=== PATIENT | female | born 1985 ===

== ENCOUNTER 2016-12-01 20:34 | Emergency (ER) | payer MEDICAID, OTHER ==
[2016-12-01 20:34] VITALS: BMI 47.2
[2016-12-01 20:46] VITALS: TEMP 99.5
--- NOTE | 2016-12-01 21:22 | ED PDOC ---
Arrival/HPI <Silvino Springer - Last Filed: 12/02/16 01:03> - General Historian: Patient <Tori Rollins - Last Filed: 12/02/16 04:11> - General Chief Complaint: Abdominal Pain Time Seen by Provider: 12/01/16 20:48 - History of Present Illness Narrative History of Present Illness (Text): 12/01/16 21:24 Patient is a 31 y/o with PMH of asthma and NIDDM2 presenting with lower quadrant abdominal pain. Patient states the abdominal pain started suddenly this morning. Patient states the abdominal pain is not related to food intake. Its sharp and radiates to the back. Patient admits to history of utis and h/o nephrostomy tube. Patient also reports she has h/o multiple yeast infections but thinks this type of pain is different. Patient denies dysurea, hematuria, increased frequency or hesitancy. patient denies n/v/d. Denies cp or sob. 12/01/16 21:26 (Tori Rollins) Past Medical History - Provider Review Nursing Documentation Reviewed: Yes <Silvino Springer - Last Filed: 12/02/16 01:03> - Provider Review Nursing Documentation Reviewed: Yes - Travel History Have you recently traveled outside [place] w/in the past 3 mons?: No - Infectious Disease Hx of Infectious Diseases: None - Tetanus Immunization Tetanus Immunization: Unknown - Past Medical History Past Medical History: No Previous - Cardiac Hx Hypertension: Yes - Pulmonary Hx Asthma: Yes Hx Bronchitis: Yes - Neurological Hx Neurological Disorder: No - HEENT Hx HEENT Disorder: No - Renal Hx Renal Disorder: No - Endocrine/Metabolic Hx Endocrine Disorders: Yes Hx Diabetes Mellitus Type 2: Yes - Hematological/Oncological Hx Blood Disorders: No - Integumentary Hx Dermatological Disorder: No - Musculoskeletal/Rheumatological Hx Musculoskeletal Disorders: Yes - Gastrointestinal Hx Gastrointestinal Disorders: No - Genitourinary/Gynecological Hx Genitourinary Disorders: No - Psychiatric Hx Anxiety: Yes Hx Substance Use: No (DENIED) - Past Surgical History Past Surgical History: Non-Contributing - Surgical History Hx Tonsillectomy: Yes - Anesthesia Hx Anesthesia: Yes - Suicidal Assessment Feels Threatened In Home Enviroment: No <Tori Rollins - Last Filed: 12/02/16 04:11> Family/Social History - Physician Review Nursing Documentation Reviewed: Yes Family/Social History: No Known Family HX <Silvino Springer - Last Filed: 12/02/16 01:03> - Physician Review Nursing Documentation Reviewed: Yes Family/Social History: Diabetes, Hypertension Smoking Status: Heavy Smoker > 10 Cigarettes Daily Hx Alcohol Use: No Hx Substance Use: No (DENIED) Hx Substance Use Treatment: No <Tori Rollins - Last Filed: 12/02/16 04:11> Allergies/Home Meds <Silvino Springer - Last Filed: 12/02/16 01:03> <Tori Rollins - Last Filed: 12/02/16 04:11> Allergies/Adverse Reactions: Allergies epinephrine Allergy (Verified 12/01/16 20:42) ANAPHYLAXIS shellfish derived Allergy (Verified 12/01/16 20:42) ANAPHYLAXIS Home Medications: Home Meds Medication Instructions Recorded Confirmed ALPRAZolam [Xanax] 1 mg PO TID 11/07/15 12/01/16 Insulin Aspart, Recombinant 0 unit DAILY 02/05/16 12/01/16 [Novolog] Review of Systems - Review of Systems Constitutional: Normal Eyes: Normal ENT: Normal Respiratory: Normal Cardiovascular: Normal Gastrointestinal: Abdominal Pain. absent: Constipation, Diarrhea, Nausea, Vomiting, Appetite Changes Genitourinary Female: Normal Musculoskeletal: Normal Skin: Normal Neurological: Normal Endocrine: Normal Hemo/Lymphatic: Normal Psychiatric: Normal <Tori Rollins - Last Filed: 12/02/16 04:11> Physical Exam Temperature: Afebrile Blood Pressure: Normal Pulse: Tachycardic Respiratory Rate: Normal Appearance: Positive for: Well-Appearing, Non-Toxic, Comfortable Mental Status: Positive for: Alert and Oriented X 3 - Systems Exam Head: Present: Atraumatic, Normocephalic Pupils: Present: PERRL Extroacular Muscles: Present: EOMI Conjunctiva: Present: Normal Mouth: Present: Moist Mucous Membranes Neck: Present: Normal Range of Motion Respiratory/Chest: Present: Clear to Auscultation, Good Air Exchange. No: Respiratory Distress, Accessory Muscle Use Cardiovascular: Present: Regular Rate and Rhythm, Normal S1, S2. No: Murmurs Abdomen: Present: Tenderness (difuse), Normal Bowel Sounds, Guarding, Other (+ CVA tenderness). No: Distention (obese abdmona), Rebound Upper Extremity: Present: Normal Inspection. No: Edema Lower Extremity: Present: Normal Inspection. No: Edema Skin: Present: Warm, Dry, Rashes, Abrasion Psychiatric: Present: Alert, Oriented x 3, Normal Insight, Agitated <Tori Rollins - Last Filed: 12/02/16 04:11> Vital Signs Temp Pulse Resp BP Pulse Ox 12/02/16 01:11 16 99 12/02/16 00:13 80 16 101/58 L 99 12/01/16 21:18 99.5 F 120 H 21 98 12/01/16 20:43 99.5 F 122 H 18 140/76 95 Medical Decision Making - Lab Interpretations I have reviewed the lab results: Yes <Silvino Springer - Last Filed: 12/02/16 01:03> Re-evaluation Time: 22:40 Reassessment Condition: Re-examined, Improving,but remains with symptoms - Lab Interpretations I have reviewed the lab results: Yes (Random glucose 413) <Tori Rollins - Last Filed: 12/02/16 04:11> ED Course and Treatment: Pt seen and evaluated with medical office worker. Pt, whose past medical history inclydes asthma, UTIs, yeast infection, and diabetes, presented for lower abdominal pain radiating to back since this morning. Aware and agree with HPI, clinical findings, plan, and management. Plan: -- Labs, lipase -- Urinalysis -- IV fluids -- Toradol -- Reassess and disposition (Silvino Springer) - Lab Interpretations Lab Results: 12/01/16 21:25 12/01/16 21:25 Lab Results 12/01/16 21:25: Urine Color Yellow, Urine Appearance Clear, Urine pH 6.5, Ur Specific [place] 1.010, Urine Protein Negative, Urine Glucose (UA) >=1000, Urine Ketones Negative, Urine Blood Negative, Urine Nitrate Negative, Urine Bilirubin Negative, Urine Urobilinogen 0.2, Ur Leukocyte Esterase Negative 12/01/16 21:25: Sodium 134, Potassium 3.8, Chloride 99, Carbon Dioxide 27, Anion Gap 12, BUN 9, Creatinine 0.6, Est GFR ( Amer) > 60, Est GFR (Non- Af Amer) > 60, Random Glucose 413 H*, Calcium 8.7, Total Bilirubin 0.3, AST 27, ALT 54, Alkaline Phosphatase 150 H, Total Protein 6.4, Albumin 3.2, Globulin 3.1 , Albumin/Globulin Ratio 1.0 L, Lipase 48 12/01/16 21:25: WBC 8.8, RBC 5.17, Hgb 15.3, Hct 44.6, MCV 86.3, MCH 29.6, MCHC 34.3, RDW 13.2, Plt Count 261, MPV 11.0, Gran % 61.3, Lymph % (Auto) 28.6, [place] % (Auto) 7.3 H, Eos % (Auto) 2.6, Baso % (Auto) 0.2, Gran # 5.37, Lymph # 2.5, [place] # 0.6, Eos # 0.2, Baso # 0.02 - RAD Interpretation Radiology Orders: 12/01/16 21:44 TRANSVAGINAL [US] Stat 12/01/16 22:36 ABD & PELVIS W/O PO OR IV CONT [CT] Stat - Medication Orders Current Medication Orders: Discontinued Medications Sodium Chloride (Sodium Chloride 0.9%) 1,000 mls @ 80 mls/hr IV .[id number] FAYE Last Admin: 12/01/16 22:17 Dose: 80 mls/hr Insulin Human Regular (Humulin R) 8 units SC STAT STA Stop: 12/01/16 22:18 Last Admin: 12/02/16 00:01 Dose: 8 units Ketorolac Tromethamine (Toradol) 30 mg IVP STAT STA Stop: 12/01/16 21:21 Last Admin: 12/01/16 21:39 Dose: 30 mg Ketorolac Tromethamine (Toradol) Confirm Administered Dose 30 mg .ROUTE .STK- MED ONE Stop: 12/01/16 21:25 Last Admin: 12/01/16 21:40 Dose: Morphine Sulfate (Morphine) 2 mg IVP STAT STA Stop: 12/01/16 21:58 Last Admin: 12/01/16 22:18 Dose: 2 mg Disposition/Present on Arrival <Silvino Springer - Last Filed: 12/02/16 01:03> - Present on Arrival Any Indicators Present on Arrival: No History of DVT/PE: No History of Uncontrolled Diabetes: No Urinary Catheter: No History of Decub. Ulcer: No History Surgical Site Infection Following: None - Disposition Have Diagnosis and Disposition been Completed?: Yes Disposition Time: 01:00 <Tori Rollins - Last Filed: 12/02/16 04:11> - Disposition Diagnosis: Abdominal pain, Uncontrolled diabetes mellitus Disposition: HOME/ ROUTINE Condition: IMPROVED Discharge Instructions (ExitCare): Abdominal Pain (ED) Additional Instructions: Please take tylenol as needed for pain Take your insulin as prescribed. Go to the nearest emergency room if you experience chest, sob, fever or chills. Referrals: [facility] [place]] - Follow up with primary
[2016-12-01 21:54] LABS: ADD MANUAL DIFF? NO
[2016-12-01 21:57] LABS: BASO # 0.02 K/mm3 (0.0-2.0); BASO % 0.2 % (0.0-3.0); EOS # 0.2 (0.0-0.7); EOS % 2.6 % (1.5-5.0); GRAN # 5.37 (1.4-6.5); GRAN % 61.3 % (50.0-68.0); HEMATOCRIT 44.6 % (36.0-48.0); LYMPH # 2.5 (1.2-3.4); LYMPH % 28.6 % (22.0-35.0); MEAN CELL VOLUME 86.3 fL (80.0-105.0); MEAN CORPUSCULAR HEMOGLOBIN 29.6 pg (25.0-35.0); MEAN CORPUSCULAR HGB CONC 34.3 g/dl (31.0-37.0); MONO # 0.6 (0.1-0.6); MONO % 7.3 % (1.0-6.0); PH,URINE 6.5 (4.7-8.0); PLATELET COUNT 261 10^3/uL (120.0-450.0); RED CELL DISTRIBUTION WIDTH 13.2 % (11.5-14.5); URINE BILIRUBIN NEGATIVE (NEGATIVE); URINE BLOOD NEGATIVE (NEGATIVE); URINE GLUCOSE (UA) >=1000 mg/dL (NEGATIVE); URINE KETONE NEGATIVE (NEGATIVE); URINE LEUKOCYTE ESTERASE NEGATIVE Leu/uL (NEGATIVE); URINE PROTEIN NEGATIVE mg/dL (<30 mg/dL); URINE UROBILINOGEN 0.2 E.U./dL (<1 E.U./dL); WHITE BLOOD COUNT 8.8 10^3/ul (4.5-11.0)
[2016-12-01] MEDS ORDERED: Morphine 2 mg/ml ISec IVP STA (21:57)
[2016-12-01] MEDS ORDERED: Sodium Chloride 0.9% 1,000 ML IV SCH (22:00)
[2016-12-01 22:08] LABS: URINE APPEARANCE CLEAR (CLEAR); URINE COLOR YELLOW (YELLOW)
[2016-12-01 22:09] LABS: ALKALINE PHOSPHATASE 150 U/L (38-133); ALT/SGPT 54 U/L (7-56); AST/SGOT 27 U/L (15-39); BILIRUBIN,TOTAL 0.3 mg/dL (0.2-1.3); BLOOD UREA NITROGEN 9 mg/dL (7-21); CALCIUM 8.7 mg/dL (8.4-10.5); CARBON DIOXIDE 27 mmol/L (21-33); CHLORIDE 99 mmol/L (98-107); GFR AFRICAN-AMERICAN > 60; LIPASE 48 U/L (23-300); POTASSIUM 3.8 mmol/L (3.6-5.0); SODIUM 134 mmol/L (132-148); TOTAL PROTEIN 6.4 g/dL (5.8-8.3)
[2016-12-01 22:15] LABS: GLUCOSE,RANDOM 413 mg/dL (70-110)
[2016-12-01] MEDS ORDERED: Insulin Regular 1 UNITS/0.01 ML ML SC STA (22:17)
--- NOTE | 2016-12-01 23:48 | CT ---
EXAM: CT Abdomen and Pelvis Without Intravenous Contrast CLINICAL HISTORY: 31 years old, female; Pain; Abdominal pain; Patient HX: Abd pain TECHNIQUE: Axial computed tomography images of the abdomen and pelvis without intravenous contrast. This CT exam was performed using one or more of the following dose reduction techniques: automated exposure control, adjustment of the mA and/or kV according to patient size, and/or use of iterative reconstruction technique. Coronal and sagittal reformatted images were created and reviewed. COMPARISON: CT - ABD PELVIS W/O PO OR IV CONT 10/05/2015 1:25:30 AM FINDINGS: Limitations: Lack of intravenous contrast. Lower thorax: Minimal atelectasis/scarring. Few subpleural pulmonary nodules and/or scarring, up to 0.2 cm, stable. ABDOMEN: Liver: Fatty infiltration. Gallbladder and bile ducts: No calcified stones. No ductal dilation. Pancreas: Unremarkable. No ductal dilation. Spleen: No splenomegaly. Adrenals: No mass. Kidneys and ureters: No renal calculi. No hydronephrosis. Stomach and bowel: No definite mural thickening. No obstruction. Appendix: Normal caliber. No inflammation. PELVIS: Bladder: Unremarkable. No stones. Reproductive: Unremarkable as visualized. ABDOMEN and PELVIS: Intraperitoneal space: No significant fluid collection. No free air. Bones/joints: Mild compression deformity T11, T12 vertebral bodies, chronic. Soft tissues: Unremarkable. Vasculature: Unremarkable. No aneurysm. Lymph nodes: No pathologically enlarged lymph nodes. IMPRESSION: 1. No definite acute intraabdominal abnormality. 2. Incidental/non-acute findings are described above.
[2016-12-02 00:14] VITALS: BP 101/58; PULSE 80; RESP 16; O2SAT 99
--- NOTE | 2016-12-02 00:19 | US ---
EXAM: US Pelvis Complete, Transabdominal CLINICAL HISTORY: 31 years old, female; Pain; Pelvic pain; Additional info: Lower quadrants abdominal pain. TECHNIQUE: Real-time transabdominal pelvic ultrasound (complete) with image documentation. COMPARISON: CT - ABD PELVIS W/O PO OR IV CONT 12/01/2016 FINDINGS: Limitations: Body habitus. Uterus/cervix: Uterus measures 7.8 x 4.7 x 5.7 cm in size. No myometrial mass. Endometrium: 1.0 cm in thickness. Right ovary: 2.5 x 1.6 x 3.2 cm in size. No mass. Normal flow. Left ovary: 1.6 x 1.6 x 1.6 cm in size. No mass. Normal flow. Free fluid: No significant free fluid. Bladder: Unremarkable as visualized. IMPRESSION: 1.No acute findings. 2.Non-acute findings are described above. EXAM: US Pelvis, Transvaginal CLINICAL HISTORY: 31 years old, female; Pain; Pelvic pain; Additional info: Lower quadrants abdominal pain. TECHNIQUE: Real-time transvaginal pelvic ultrasound (complete) with image documentation. Transvaginal imaging was used for better evaluation of the endometrium and adnexa. COMPARISON: CT - ABD PELVIS W/O PO OR IV CONT 12/01/2016 FINDINGS: Limitations: Body habitus. Uterus/cervix: Uterus measures 7.8 x 4.7 x 5.7 cm in size. No myometrial mass. Endometrium: 1.0 cm in thickness. Right ovary: 2.5 x 1.6 x 3.2 cm in size. No mass. Normal flow. Left ovary: 1.6 x 1.6 x 1.6 cm in size. No mass. Normal flow. Free fluid: No significant free fluid. Bladder: Empty bladder which cannot be evaluated with this probe.
== END 2016-12-02 01:13 | disposition home or self-care (01) ==
LOC: ED 20:34
DX: E11.9 Type 2 diabetes mellitus without complications (principal); R10.9 Unspecified abdominal pain
CPT/HCPCS: 74176; 76830; 80053; 81003; 83690; 85025; 96374; 96375; 99283; J1885; J2270; J7040

== ENCOUNTER 2018-09-04 21:35 | Observation (INO) | payer MEDICAID, OTHER ==
[2018-09-04] MEDS ORDERED: Sodium Chloride 0.9% 1,000 ML IV STA (22:27)
[2018-09-04] MEDS ORDERED: Morphine 4 mg/ml ISec IVP STA (22:27)
[2018-09-04] MEDS ORDERED: Morphine 4 mg/ml ISec ONE (22:38)
--- NOTE | 2018-09-04 23:17 | ED PDOC ---
Arrival/HPI - General Chief Complaint: Abdominal Pain Time Seen by Provider: 09/04/18 21:41 Historian: Patient - History of Present Illness Narrative History of Present Illness (Text): 09/04/18 23:31 A 33 year old female presents to the emergency department complaining of abdominal pain, vomiting, and diarrhea for 4 days. Patient reports she was seen at [facility] yesterday and had labs and CT performed, showing possible m esenteric adenitis, hiatal hernia, constipation, and gastritis. Patient was admitted for further evaluation and had a EGD performed. Later on, patient signed out against medical advice because "they weren't giving me my anxiety medications correctly", and states "I shouldn't have signed out because I'm still in pain". She presented to this ED for further evaluation. Patient denies any fever, or any other complaints at this time. PMD: Dr. Mejia Past Medical History - Provider Review Nursing Documentation Reviewed: Yes - Infectious Disease Hx of Infectious Diseases: None - Tetanus Immunization Tetanus Immunization: Unknown - Past Medical History Past Medical History: No Previous - Cardiac Hx Hypertension: Yes - Pulmonary Hx Asthma: Yes Hx Bronchitis: Yes - Neurological Hx Neurological Disorder: No - HEENT Hx HEENT Disorder: No - Renal Hx Renal Disorder: No - Endocrine/Metabolic Hx Endocrine Disorders: Yes Hx Diabetes Mellitus Type 2: Yes - Hematological/Oncological Hx Blood Disorders: No - Integumentary Hx Dermatological Disorder: No - Musculoskeletal/Rheumatological Hx Falls: No - Gastrointestinal Hx Gastrointestinal Disorders: No - Genitourinary/Gynecological Hx Genitourinary Disorders: No - Psychiatric Hx Substance Use: No - Past Surgical History Past Surgical History: Non-Contributing - Surgical History Hx Tonsillectomy: Yes - Anesthesia Hx Anesthesia: Yes Hx Anesthesia Reactions: No - Suicidal Assessment Feels Threatened In Home Enviroment: No Family/Social History - Physician Review Nursing Documentation Reviewed: Yes Family/Social History: No Known Family HX Smoking Status: Heavy Smoker > 10 Cigarettes Daily Hx Alcohol Use: No Hx Substance Use: No Hx Substance Use Treatment: No Allergies/Home Meds Allergies/Adverse Reactions: Allergies epinephrine Allergy (Verified 09/04/18 21:42) ANAPHYLAXIS shellfish derived Allergy (Verified 09/04/18 21:42) ANAPHYLAXIS Home Medications: Home Meds Medication Instructions Recorded Confirmed Albuterol 0.083% [Albuterol 3 ml IH Q4 PRN 09/04/18 09/04/18 Sulfate 3 Ml] Albuterol HFA [Ventolin HFA 90 1 puff IH Q6 PRN 09/04/18 09/04/18 mcg/actuation (8 g)] ALPRAZolam [Xanax] 0.25 mg PO BID 09/05/18 09/05/18 Review of Systems - Physician Review All systems were reviewed & negative as marked: Yes - Review of Systems Constitutional: absent: Fevers Gastrointestinal: Abdominal Pain, Diarrhea, Nausea, Vomiting Physical Exam Vital Signs Reviewed: Yes Vital Signs Temp Pulse Resp BP Pulse Ox 09/04/18 21:42 98.1 F 68 18 129/71 100 Temperature: Afebrile Blood Pressure: Normal Pulse: Regular Respiratory Rate: Normal Appearance: Positive for: Other (anxious, tearful) Pain Distress: Moderate Mental Status: Positive for: Alert and Oriented X 3 - Systems Exam Head: Present: Atraumatic, Normocephalic Pupils: Present: PERRL Extroacular Muscles: Present: EOMI Conjunctiva: Present: Normal Neck: Present: Normal Range of Motion Respiratory/Chest: Present: Clear to Auscultation, Good Air Exchange. No: Respiratory Distress, Accessory Muscle Use Cardiovascular: Present: Regular Rate and Rhythm, Normal S1, S2. No: Murmurs Abdomen: Present: Tenderness (periumbilical and lower region). No: Distention, Peritoneal Signs, Rebound, Guarding Back: Present: Normal Inspection Upper Extremity: Present: Normal Inspection. No: Cyanosis, Edema Lower Extremity: Present: Normal Inspection. No: Edema Neurological: Present: GCS=15, CN II-XII Intact, Speech Normal Skin: Present: Warm, Dry, Normal Color. No: Rashes Psychiatric: Present: Alert, Oriented x 3, Normal Insight, Normal Concentration Medical Decision Making ED Course and Treatment: 09/04/18 23:31 Impression: 33 year old female with abdominal pain, vomiting, and diarrhea. Plan: -- Pepcid -- Morphine -- Zofran -- IV Fluids -- Reassess and disposition Progress Notes: Chart from previous [facility] admission reviewed. Patient started on IV hydration. Pepcid, morphine, and zofran ivp given for gastritis, pain, and nausea. Patient continues to complain of severe pain. As she was previously undergoing GI evaluation at [facility], decision made to re-admit. Case discussed with Dr. Figueroa, accepts patient for admission to hospitalist service. Admitted under Dr. Wilkerson. 09/06/18 06:26 - Medication Orders Current Medication Orders: Sodium Chloride (Sodium Chloride 0.9%) 1,000 mls @ 999 mls/hr IV .[id number] STA Stop: 09/04/18 23:27 Last Admin: 09/04/18 22:40 Dose: 999 mls/hr eMAR Start Stop Document 09/04/18 22:40 JOL (Rec[facility]04[facility]18 [id number] Intravenous Solution Start Date 09/04/18 Start Time 22:40 End Date 09/04/18 End time 23:41 Total Infusion Time 61 Discontinued Medications Famotidine (Pepcid) 20 mg IVP STAT STA Stop: 09/04/18 22:28 Last Admin: 09/04/18 22:40 Dose: 20 mg IVP Administration Document 09/04/18 22:40 JOL (Rec: 09/04/18 22:56 [id number] Charges for Administration # of IVP Administrations 1 Morphine Sulfate (Morphine) 4 mg IVP STAT STA Stop: 09/04/18 22:28 Last Admin: 09/04/18 22:40 Dose: 4 mg MAR Pain Assessment Document 09/04/18 22:40 JOL (Rec: 09/04/18 22:55 JOL [id number]) Pain Reassessment Is this a pain reassessment? No Sleep Is patient sleeping during reassessment? No Presence of Pain Presence of Pain Yes Pain Scale Used Protocol: PSCALES Pain Scale Used Numeric Location Pain Location Body Site Abdomen Description Intensity of Pain at present 7 Pain Behavior Moaning Crying Restlessness Facial Grimacing IVP Administration Document 09/04/18 22:40 JOL (Rec: 09/04/18 22:55 JOL [id number]) Charges for Administration # of IVP Administrations 1 Ondansetron HCl (Zofran Inj) 4 mg IVP STAT STA Stop: 09/04/18 22:28 Last Admin: 09/04/18 22:40 Dose: 4 mg IVP Administration Document 09/04/18 22:40 JOL (Rec: 09/04/18 22:56 JOL [id number]) Charges for Administration # of IVP Administrations 1 - Scribe Statement The provider has reviewed the documentation as recorded by the Andrew Humphrey Provider Andrew Attestation: All medical record entries made by the Sergeibseth were at my direction and personally dictated by me. I have reviewed the chart and agree that the record accurately reflects my personal performance of the history, physical exam, medical decision making, and the department course for this patient. I have also personally directed, reviewed, and agree with the discharge instructions and disposition. Disposition/Present on Arrival - Present on Arrival Any Indicators Present on Arrival: No History of DVT/PE: No History of Uncontrolled Diabetes: No Urinary Catheter: No History of Decub. Ulcer: No History Surgical Site Infection Following: None - Disposition Have Diagnosis and Disposition been Completed?: Yes Diagnosis: Abdominal pain Disposition: HOSPITALIZED Disposition Time: 23:20 Patient Plan: Admission Condition: STABLE
[2018-09-04] MEDS ORDERED: Dextrose 50% SYRINGE Inj (50 ml) IV PRN (23:56)
--- NOTE | 2018-09-05 00:17 | CP.PCM.HP ---
<Silviano Welsh - Last Filed: 09/05/18 01:08> History of Present Illness - History of Present Illness History of Present Illness: Resident History & Physical for Hospitalist Service Patient is a 33 year old female with past medical history of T2DM, obesity, asthma presenting with chief complaint of abdominal pain which began a week prior. Pain is located in her lower abdomen and described as a sharp stabbing sensation rated severity +10/10. Patient also reports associated nausea, hematemesis, and dark loose stools. Patient admits to taking pepto bismol. Patient was recently admitted to [facility] for these symptoms. Endoscopy was done which showed hiatal hernia and erythematous mucosa which was biopsied. Patient signed out against medical advice from [facility] today due to feelings of anxiety. [place] [facility] [place]. Denies headache, dizziness, fevers, chills, chest pain, shortness of breath, dysuria. PMH: T2DM, obesity, asthma, anxiety PSH: tonsillectomy SHx: smokes 1 PPD since 19 yo, denies alcohol or drug use FHx: mother (T2DM, drug abuse), father (T2DM) Allergies: shellfish PMD: Dr. Mejia Present on Admission - Present on Admission Any Indicators Present on Admission: No Review of Systems - Review of Systems All systems: reviewed and no additional remarkable complaints except (as stated in HPI) Past Patient History - Infectious Disease Hx of Infectious Diseases: None - Tetanus Immunizations Tetanus Immunization: Unknown - Past Medical History & Family History Past Medical History?: Yes - Past Social History Smoking Status: Heavy Smoker > 10 Cigarettes Daily - CARDIAC Hx Hypertension: Yes - PULMONARY Hx Asthma: Yes Hx Bronchitis: Yes - NEUROLOGICAL Hx Neurological Disorder: No - HEENT Hx HEENT Problems: No - RENAL Hx Chronic Kidney Disease: No - ENDOCRINE/METABOLIC Hx Endocrine Disorders: Yes Hx Diabetes Mellitus Type 2: Yes - HEMATOLOGICAL/ONCOLOGICAL Hx Blood Disorders: No - INTEGUMENTARY Hx Dermatological Problems: No - MUSCULOSKELETAL/RHEUMATOLOGICAL Hx Falls: No - GASTROINTESTINAL Hx Gastrointestinal Disorders: No - GENITOURINARY/GYNECOLOGICAL Hx Genitourinary Disorders: No - PSYCHIATRIC Hx Substance Use: No - SURGICAL HISTORY Hx Tonsillectomy: Yes - ANESTHESIA Hx Anesthesia: Yes Hx Anesthesia Reactions: No Meds Allergies/Adverse Reactions: Allergies Allergy/AdvReac Type Severity Reaction Status Date / Time epinephrine Allergy ANAPHYLAXIS Verified 09/04/18 21:42 shellfish derived Allergy ANAPHYLAXIS Verified 09/04/18 21:42 Physical Exam - Constitutional Appears: Non-toxic, No Acute Distress - Head Exam Head Exam: ATRAUMATIC, NORMOCEPHALIC - Eye Exam Eye Exam: EOMI, Normal appearance, PERRL - ENT Exam ENT Exam: Mucous Membranes Moist - Neck Exam Neck exam: Positive for: Full Rom. Negative for: Lymphadenopathy - Respiratory Exam Respiratory Exam: Clear to Auscultation Bilateral, NORMAL BREATHING PATTERN. absent: Accessory Muscle Use, Rales, Rhonchi, Wheezes, Respiratory Distress - Cardiovascular Exam Cardiovascular Exam: REGULAR RHYTHM, +S1, +S2. absent: Systolic Murmur - GI/Abdominal Exam GI & Abdominal Exam: Soft, Tenderness (RLQ, LLQ). absent: Distended, Firm, Guarding, Rebound, Rigid - Extremities Exam Extremities exam: Positive for: normal capillary refill, normal inspection, pedal pulses present - Neurological Exam Neurological exam: Alert, CN II-XII Intact, Oriented x3 - Psychiatric Exam Psychiatric exam: Anxious - Skin Skin Exam: Dry, Intact, Warm Results - Vital Signs Recent Vital Signs: Last Vital Signs Temp 98.1 F 09/04/18 21:42 Pulse 68 09/04/18 21:42 Resp 18 09/04/18 21:42 BP 129/71 09/04/18 21:42 Pulse Ox 100 09/04/18 21:42 Assessment & Plan - Assessment and Plan (Free Text) Assessment: Patient is a 33 year old female with past medical history of T2DM, obesity, asthma presenting with chief complaint of abdominal pain. Plan: Abdominal Pain - afebrile, no leukocytosis - Toradol 15 mg Q6H - Zofran 4mg Q4H PRN - Reglan 5 mg PO TID - stool occult negative - CT abdomen/pelvis showed numerous shotty lymph nodes within the abdominal mesentery with some mild adjacent fat stranding which may represent a mesenteric adenitis. Hepatomegaly with hepatic steatosis. Prominent spleen. Fecal retention in colon consistent with constipation. - amylase and lipase negative - Endoscopy (09/04/18) showed medium sized hiatal hernia, erythematous mucosa in the antrum biopsied, erythematous duodenopathy - followup abdominal ultrasound Diabetes mellitus - Levemir 40 units HS - Humalog 15 units TID with meals - ISS - Hgba1C: 12.3, TSH: 2.24, Free T4: 1.57 - diabetic education - f/u lipid panel Lung nodules - CT abdomen/pelvis showed 4 millimeter nodule/intra fissural nodule seen on se alisa 3, image 6 in the left lung. 1 millimeter subpleural nodule along the lateral aspect of the left lower lobe on series 3, image 35. Additional 1 millimeter subpleural nodule at the posterior aspect of the left lower lobe on series 3, image 17. Three month interval follow-up may be helpful. Tobacco abuse - counseling cessation - refusing nicotine patch Anxiety - Xanax 0.25mg PO BID PRN PPX - Protonix 40 mg PO daily - Lovenox 40 SC daily Case reviewed with Dr. Henry Welsh PGY-1 <Hveer Figueroa - Last Filed: 09/05/18 04:17> Results - Vital Signs Recent Vital Signs: Last Vital Signs Temp 98.1 F 09/04/18 21:42 Pulse 84 09/05/18 00:28 Resp 20 09/05/18 00:28 BP 129/71 09/04/18 21:42 Pulse Ox 100 09/04/18 21:42 - Labs Labs: Laboratory Results - last 24 hr 09/05/18 00:30 POC Glucose (mg/dL) 198 H Attending/Attestation - Attestation I have personally seen and examined this patient.: Yes I have fully participated in the care of the patient.: Yes I have reviewed all pertinent clinical information: Yes Notes (Text): 09/05/18 04:16 Patient was seen when she was in [id number] . Agree with history , physical examination, assessment and plan. States that she had vomited with specks of blood.
[2018-09-05] MEDS ORDERED: Albuterol-Ipratrop 3 mg / 0.5 (3 ml) UD IH PRN (00:57)
[2018-09-05 02:32] VITALS: BMI 45.4
[2018-09-05] MEDS: Pantoprazole 40 mg EC Tab PO SCH (05:42)
[2018-09-05 07:47] LABS: BASO # 0.01 K/mm3 (0.0-2.0); BASO % 0.2 % (0.0-3.0); EOS # 0.2 (0.0-0.7); EOS % 3.1 % (1.5-5.0); HEMOGLOBIN 13.2 g/dL (12.0-16.0); LYMPH # 1.6 (1.2-3.4); LYMPH % 33.7 % (22.0-35.0); MEAN CELL VOLUME 86.6 fl (80.0-105.0); MEAN CORPUSCULAR HEMOGLOBIN 27.6 pg (25.0-35.0); MEAN CORPUSCULAR HGB CONC 31.9 g/dl (31.0-37.0); MEAN PLATELET VOLUME 10.9 fl (7.0-11.0); MONO # 0.5 (0.1-0.6); MONO % 9.5 % (1.0-6.0); RBC 4.78 10^6/uL (3.5-6.1); RED CELL DISTRIBUTION WIDTH 13.3 % (11.5-14.5); WHITE BLOOD COUNT 4.8 10^3/uL (4.5-11.0)
[2018-09-05] MEDS: Insulin Lispro 1 UNITS/0.01 ML SC SCH ×3 (07:59→16:27)
[2018-09-05] MEDS: Insulin Reg-HIGH-Coverage SC SCH ×4 (08:00→22:05)
[2018-09-05 08:07] LABS: LDL CHOLESTEROL 106 mg/dL (0-129)
[2018-09-05 08:28] LABS: ALBUMIN 2.7 g/dL (3.0-4.8); ALT/SGPT 46 U/L (7-56); AST/SGOT 46 U/L (14-36); BLOOD UREA NITROGEN 15 mg/dL (7-21); GFR NON-AFRICAN AMERICAN > 60; HDL CHOLESTEROL 26 mg/dL (29-60)
[2018-09-05] MEDS: Enoxaparin 40 mg Syringe SC SCH (09:14)
[2018-09-05] MEDS ORDERED: POLYETHYLENE GLYCOL 3350 17 GM/Dose PACKET PO SCH (10:00)
[2018-09-05] MEDS ORDERED: Insulin Lispro 1 UNITS/0.01 ML SC SCH (10:00)
--- NOTE | 2018-09-05 13:01 | CON ---
DATE: 09/05/2018 GASTROENTEROLOGY CONSULTATION REQUESTING PHYSICIAN: Dr. Wilkerson REASON FOR CONSULT: I have been asked to see this 33-year-old female who comes to the hospital with several days of diffuse abdominal pain. The patient signed out of [facility] yesterday due to "her anxiety." The patient admits to nausea, vomiting, and some diarrhea. CT scan of the abdomen and pelvis performed in [facility] revealed mesenteric adenitis with colon filled with stool. The patient states that she has had "diarrhea for the last several days." She denies any fevers or chills. She also states that she has had "dark stools." She is taking Pepto-Bismol. The patient had an endoscopy at [facility] recently and was found to have hiatal hernia and gastritis. PAST MEDICAL HISTORY: Notable for morbid obesity, diabetes mellitus, asthma, anxiety, gastritis, hiatal hernia. PAST SURGICAL HISTORY: Notable for tonsillectomy. SOCIAL HISTORY: She smokes up to a pack a day of cigarettes. She denies alcohol or drug use. FAMILY HISTORY: Notable for both parents with diabetes and mother with drug use. REVIEW OF SYSTEMS: Fourteen-point review of systems is notable for abdominal pain, nausea, vomiting, diarrhea. MEDICATIONS AT HOME: Include alprazolam, albuterol, and Pepto-Bismol. PHYSICAL EXAMINATION: GENERAL: Morbidly obese female lying in bed, in no distress. VITAL SIGNS: Reveal temperature of 98.2, blood pressure 114/70, heart rate of 68, BMI of 45.5. HEENT: Reveal sclerae to be white, conjunctivae pink. NECK: Supple. CHEST: Lungs are clear. HEART: Exam reveals a regular rate and rhythm. ABDOMEN: Morbidly obese, soft, mild diffuse tenderness. No rebound or guarding. EXTREMITIES: Show no edema. LABORATORY DATA: Reveals white blood cell count of 4.8, hemoglobin 13.2. Chemistries reveal blood sugar of 311, AST 46, ALT 46, total bilirubin 0.4. IMPRESSION: A 33-year-old female with several days of diffuse abdominal pain, who signed out of [facility]. CT scan of the abdomen and pelvis performed at [facility] revealed mesenteric adenitis. She had a recent upper endoscopy which revealed gastritis and a hiatal hernia. RECOMMENDATIONS: 1. Can try low dose non-steroidals with a PPI for cytoprotection of the stomach. 2. No further GI workup is planned at this time. Thank you. Silvino Bhardwaj MD
[2018-09-05 21:26] VITALS: RESP 18
[2018-09-05] MEDS ORDERED: Insulin Detemir 100 units/ml Vial (Levemir) SC SCH (22:00)
[2018-09-06] MEDS: Pantoprazole 40 mg EC Tab PO SCH (05:45)
[2018-09-06 08:06] VITALS: BP 114/76; PULSE 64; TEMP 97.5; O2SAT 97
[2018-09-06 08:31] LABS: BASO # 0.03 K/mm3 (0.0-2.0); BASO % 0.4 % (0.0-3.0); EOS # 0.2 (0.0-0.7); EOS % 2.1 % (1.5-5.0); HEMOGLOBIN 14.7 g/dL (12.0-16.0); LYMPH # 1.6 (1.2-3.4); LYMPH % 23.1 % (22.0-35.0); MEAN CELL VOLUME 86.9 fl (80.0-105.0); MEAN CORPUSCULAR HEMOGLOBIN 27.8 pg (25.0-35.0); MONO # 0.6 (0.1-0.6); MONO % 8.8 % (1.0-6.0); RBC 5.28 10^6/uL (3.5-6.1); WHITE BLOOD COUNT 7.1 10^3/uL (4.5-11.0)
[2018-09-06 08:56] LABS: ALB/GLOB RATIO 0.9 (1.1-1.8); ALBUMIN 3.1 g/dL (3.0-4.8); ALT/SGPT 61 U/L (7-56); AST/SGOT 57 U/L (14-36); BLOOD UREA NITROGEN 20 mg/dL (7-21); CALCIUM 8.2 mg/dL (8.4-10.5); GFR NON-AFRICAN AMERICAN > 60
[2018-09-06] MEDS: Insulin Reg-HIGH-Coverage SC SCH ×2 (09:19→11:47)
[2018-09-06] MEDS: Insulin Lispro 1 UNITS/0.01 ML SC SCH ×2 (09:19→11:47)
[2018-09-06] MEDS: Enoxaparin 40 mg Syringe SC SCH (10:54)
--- NOTE | 2018-09-06 15:01 | CP.PCM.DIS ---
<Ericka White - Last Filed: 09/06/18 15:01> Provider - Provider Date of Admission: 09/04/18 23:20 Attending physician: Renetta Wilkerson MD Consults: 09/05/18 00:01 Diabetic Education Referral Routine Comment: Physician Instructions: Reason For Exam: uncontrolled DM 09/05/18 04:12 Consult [Physician Consult] Routine Comment: lower abdominal pain ,hemetemesis Consulting Provider: Silvino Bhardwaj Consulting Physician: Silvino Bhardwaj Reason for Consult: lower abdominal pain ,hemetemesis Time Spent in preparation of Discharge (in minutes): 35 Hospital Course - Lab Results Lab Results: Most Recent Lab Values WBC 7.1 10^3/uL (4.5-11.0) D 09/06/18 08:25 RBC 5.28 10^6/uL (3.5-6.1) 09/06/18 08:25 Hgb 14.7 g/dL (12.0-16.0) 09/06/18 08:25 Hct 45.9 % (36.0-48.0) 09/06/18 08:25 MCV 86.9 fl (80.0-105.0) 09/06/18 08:25 MCH 27.8 pg (25.0-35.0) 09/06/18 08:25 MCHC 32.0 g/dl (31.0-37.0) 09/06/18 08:25 RDW 13.0 % (11.5-14.5) 09/06/18 08:25 Plt Count 266 10^3/uL (120.0-450.0) 09/06/18 08:25 MPV 11.0 fl (7.0-11.0) 09/06/18 08:25 Neut % (Auto) 65.6 % (50.0-68.0) 09/06/18 08:25 Lymph % (Auto) 23.1 % (22.0-35.0) 09/06/18 08:25 [place] % (Auto) 8.8 % (1.0-6.0) H 09/06/18 08:25 Eos % (Auto) 2.1 % (1.5-5.0) 09/06/18 08:25 Baso % (Auto) 0.4 % (0.0-3.0) 09/06/18 08:25 Lymph # (Auto) 1.6 (1.2-3.4) 09/06/18 08:25 [place] # (Auto) 0.6 (0.1-0.6) 09/06/18 08:25 Eos # (Auto) 0.2 (0.0-0.7) 09/06/18 08:25 Baso # (Auto) 0.03 K/mm3 (0.0-2.0) 09/06/18 08:25 Absolute Neuts (auto) 4.63 (1.4-6.5) 09/06/18 08:25 Sodium 135 mmol/L (132-148) 09/06/18 08:25 Potassium 4.2 mmol/L (3.6-5.0) 09/06/18 08:25 Chloride 103 mmol/L (98-107) 09/06/18 08:25 Carbon Dioxide 26 mmol/L (21-33) 09/06/18 08:25 Anion Gap 11 (10-20) 09/06/18 08:25 BUN 20 mg/dL (7-21) 09/06/18 08:25 Creatinine 0.4 mg/dl (0.7-1.2) L 09/06/18 08:25 Est GFR ( Amer) > 60 09/06/18 08:25 Est GFR (Non-Af Amer) > 60 09/06/18 08:25 POC Glucose (mg/dL) 252 mg/dL (65-110) H 09/06/18 11:02 Random Glucose 301 mg/dL (70-110) H* 09/06/18 08:25 Calcium 8.2 mg/dL (8.4-10.5) L 09/06/18 08:25 Phosphorus 4.1 mg/dL (2.5-4.5) 09/05/18 07:20 Magnesium 1.6 mg/dL (1.7-2.2) L 09/05/18 07:20 Total Bilirubin 0.2 mg/dL (0.2-1.3) 09/06/18 08:25 AST 57 U/L (14-36) H D 09/06/18 08:25 ALT 61 U/L (7-56) H 09/06/18 08:25 Alkaline Phosphatase 156 U/L (38-126) H D 09/06/18 08:25 Total Protein 6.5 g/dL (5.8-8.3) 09/06/18 08:25 Albumin 3.1 g/dL (3.0-4.8) 09/06/18 08:25 Globulin 3.4 gm/dL 09/06/18 08:25 Albumin/Globulin Ratio 0.9 (1.1-1.8) L 09/06/18 08:25 Triglycerides 126 mg/dL (35-160) 09/05/18 07:20 Cholesterol 144 mg/dL (130-200) 09/05/18 07:20 LDL Cholesterol Direct 106 mg/dL (0-129) 09/05/18 07:20 HDL Cholesterol 26 mg/dL (29-60) L 09/05/18 07:20 Physical Exam - Constitutional Appears: Non-toxic, No Acute Distress - Head Exam Head Exam: ATRAUMATIC, NORMOCEPHALIC - Eye Exam Eye Exam: EOMI, Normal appearance, PERRL - ENT Exam ENT Exam: Mucous Membranes Moist - Neck Exam Neck exam: Positive for: Full Rom. Negative for: Lymphadenopathy - Respiratory Exam Respiratory Exam: Clear to Auscultation Bilateral, NORMAL BREATHING PATTERN. absent: Accessory Muscle Use, Rales, Rhonchi, Wheezes, Respiratory Distress - Cardiovascular Exam Cardiovascular Exam: REGULAR RHYTHM, +S1, +S2. absent: Systolic Murmur - GI/Abdominal Exam GI & Abdominal Exam: Soft, Tenderness in RLQ. absent: Distended, Firm, Guar ding, Rebound, Rigid - Extremities Exam Extremities exam: Positive for: normal capillary refill, normal inspection, pedal pulses present - Neurological Exam Neurological exam: AOx3, CN II-XII Intact - Psychiatric Exam Psychiatric exam: Anxious - Skin Skin Exam: Dry, Intact, Warm - Hospital Course Hospital Course: Upon admission, 33 year old female with past medical history of T2DM, obesity, asthma presenting with chief complaint of abdominal pain which began a week prior. Pain is located in her lower abdomen and described as a sharp stabbing sensation rated severity +10/10. Patient also reports associated nausea, hematemesis, and dark loose stools. Patient admits to taking pepto bismol. Patient was recently admitted to [facility] for these symptoms. Endoscopy was done which showed hiatal hernia and erythematous mucosa which was biopsied. Patient signed out against medical advice from [facility] today due to feelings of anxiety. She returns to [facility] as pain is unresolved. Denies headache, dizziness, fevers, chills, chest pain, shortness of breath, dysuria. During hospital course, patient noted to be afebrile with no WBC. Amylase and lipase were WNL. CT abdomen/pelvis showed numerous shotty lymph nodes within the abdominal mesentery with some mild adjacent fat stranding which may represent a mesenteric adenitis. Hepatomegaly with hepatic steatosis. Prominent spleen. Fecal retention in colon consistent with constipation. Patient had endoscopy (09/04/18) at another facility and showed medium sized hiatal hernia, erythematous mucosa in the antrum biopsied, erythematous duodenopathy but left AMA and came to [facility]. Gastroenterology was consulted and recommended low dose NSAIDs and PPI. Patient advised of importance of weight loss and compliance with diabetes medication for improvement in symptoms and patient acknowledged advise. She will follow up with her PMD and have glucose diary. She agreed with discharge today and all her questions were answered. Discharge Plan - Discharge Medications Prescriptions: Insulin Detemir [Levemir] 40 unit SC HS 30 Days ml Insulin Lispro [Humalog (Insulin Lispro)] 15 unit SQ AC 30 Days cartridge Pantoprazole [Protonix] 40 mg PO DAILY #30 ect - Follow Up Plan Condition: STABLE Disposition: HOME/ ROUTINE Instructions: Type 2 Diabetes, Asthma in Adults, Blood Glucose Monitoring, Low Blood Sugar in People With Diabetes, Flu Vaccine, Acute Abdominal Pain (DC), Acute Abdominal Pain (GEN) Additional Instructions: Please follow up with your primary care physician, Dr. Mejia, within 3-5 days. Please get a consult for an [employer] (diabetes doctor) from Dr. Mejia. Please start keeping a glucose diary when you check your blood sugars as discussed during your admission. Please try to follow a healthy diet and exercise schedule. Please continue your current insulin management of Levemir 40 units at night and Humalog 15 units before meals. Please follow up with your primary care physician regarding your lung nodule in 3 months, as discussed during your admission. If your symptoms return, please report to the nearest emergency department. <Lana Pablo R - Last Filed: 09/06/18 15:40> Provider - Provider Date of Admission: 09/04/18 23:20 Attending physician: Renetta Wilkerson MD Consults: 09/05/18 00:01 Diabetic Education Referral Routine Comment: Physician Instructions: Reason For Exam: uncontrolled DM 09/05/18 04:12 Consult [Physician Consult] Routine Comment: lower abdominal pain ,hemetemesis Consulting Provider: Silvino Bhardwaj Consulting Physician: Silvino Bhardwaj Reason for Consult: lower abdominal pain ,[facility] Course - Lab Results Lab Results: Most Recent Lab Values WBC 7.1 10^3/uL (4.5-11.0) D 09/06/18 08:25 RBC 5.28 10^6/uL (3.5-6.1) 09/06/18 08:25 Hgb 14.7 g/dL (12.0-16.0) 09/06/18 08:25 Hct 45.9 % (36.0-48.0) 09/06/18 08:25 MCV 86.9 fl (80.0-105.0) 09/06/18 08:25 MCH 27.8 pg (25.0-35.0) 09/06/18 08:25 MCHC 32.0 g/dl (31.0-37.0) 09/06/18 08:25 RDW 13.0 % (11.5-14.5) 09/06/18 08:25 Plt Count 266 10^3/uL (120.0-450.0) 09/06/18 08:25 MPV 11.0 fl (7.0-11.0) 09/06/18 08:25 Neut % (Auto) 65.6 % (50.0-68.0) 09/06/18 08:25 Lymph % (Auto) 23.1 % (22.0-35.0) 09/06/18 08:25 [place] % (Auto) 8.8 % (1.0-6.0) H 09/06/18 08:25 Eos % (Auto) 2.1 % (1.5-5.0) 09/06/18 08:25 Baso % (Auto) 0.4 % (0.0-3.0) 09/06/18 08:25 Lymph # (Auto) 1.6 (1.2-3.4) 09/06/18 08:25 [place] # (Auto) 0.6 (0.1-0.6) 09/06/18 08:25 Eos # (Auto) 0.2 (0.0-0.7) 09/06/18 08:25 Baso # (Auto) 0.03 K/mm3 (0.0-2.0) 09/06/18 08:25 Absolute Neuts (auto) 4.63 (1.4-6.5) 09/06/18 08:25 Sodium 135 mmol/L (132-148) 09/06/18 08:25 Potassium 4.2 mmol/L (3.6-5.0) 09/06/18 08:25 Chloride 103 mmol/L (98-107) 09/06/18 08:25 Carbon Dioxide 26 mmol/L (21-33) 09/06/18 08:25 Anion Gap 11 (10-20) 09/06/18 08:25 BUN 20 mg/dL (7-21) 09/06/18 08:25 Creatinine 0.4 mg/dl (0.7-1.2) L 09/06/18 08:25 Est GFR ( Amer) > 60 09/06/18 08:25 Est GFR (Non-Af Amer) > 60 09/06/18 08:25 POC Glucose (mg/dL) 252 mg/dL (65-110) H 09/06/18 11:02 Random Glucose 301 mg/dL (70-110) H* 09/06/18 08:25 Calcium 8.2 mg/dL (8.4-10.5) L 09/06/18 08:25 Phosphorus 4.1 mg/dL (2.5-4.5) 09/05/18 07:20 Magnesium 1.6 mg/dL (1.7-2.2) L 09/05/18 07:20 Total Bilirubin 0.2 mg/dL (0.2-1.3) 09/06/18 08:25 AST 57 U/L (14-36) H D 09/06/18 08:25 ALT 61 U/L (7-56) H 09/06/18 08:25 Alkaline Phosphatase 156 U/L (38-126) H D 09/06/18 08:25 Total Protein 6.5 g/dL (5.8-8.3) 09/06/18 08:25 Albumin 3.1 g/dL (3.0-4.8) 09/06/18 08:25 Globulin 3.4 gm/dL 09/06/18 08:25 Albumin/Globulin Ratio 0.9 (1.1-1.8) L 09/06/18 08:25 Triglycerides 126 mg/dL (35-160) 09/05/18 07:20 Cholesterol 144 mg/dL (130-200) 09/05/18 07:20 LDL Cholesterol Direct 106 mg/dL (0-129) 09/05/18 07:20 HDL Cholesterol 26 mg/dL (29-60) L 09/05/18 07:20 Attending/Attestation - Attestation I have personally seen and examined this patient.: Yes I have fully participated in the care of the patient.: Yes I have reviewed all pertinent clinical information, including history, physical exam and plan: Yes Notes (Text): Patient seen and examined by me with resident at approximately 9:55 AM. Case including discharge plan discussed with resident. Agree with above with following additions/corrections. Patient is a 33-year-old female with past medical history significant for type 2 diabetes, obesity, anxiety, and mild intermittent asthma who presented to the emergency room with abdominal pain that started approximately 1 week prior. Please see H&P for full details. Patient was admitted with generalized abdominal pain, uncontrolled type 2 diabetes, lung nodules, tobacco abuse, and anxiety. Patient had abdominal CT on 09/02/2018 which per radiologist showed numerous shotty lymph nodes within the abdominal mesentery with a mild adjacent fat stranding which may represent mesenteric adenitis; hepatomegaly with hepatic steatosis; prominent spleen; fecal retention and colon consistent with constipation; 4 mm nodule/intra fissural nodule seen on series 3 image 6 in the left lung, 1 mm subpleural nodul e in the lateral aspect of the left lower lobe on series 3 image 35, additional 1 mm subpleural nodule at the posterior aspect of the left lower lobe on series 3 image 17, 3 month interval follow-up recommended. She had an endoscopy at [facility] on 09/04/2018 which showed a medium-sized hiatal hernia, erythematous mucosa in the antrum which was biopsied, and erythematous duodenopathy. Patient was placed on Toradol for pain. Patient was placed on Reglan for nausea and vomiting. Patient was seen by evaporative cooler installer who recommended low-dose NSAIDs and Protonix. Patient was found comfortable on multiple occasions when she was complaining of pain. Patient also exhibited no pain when abdomen was palpated and patient was distracted. Patient has not been compliant with any medications at home for over a year. Patient states that she is unsure if she will take her insulin when she is discharged. Importance of compliance with medications and regular follow-up with the doctor was discussed at length with patient multiple times. Patient started having hemoglobin A1c of 12.3. She was placed on 40 units at bedtime and Humalog 15 units 3 times a day. Patient was counseled on tobacco cessation. Patient was advised that she will need 3 month follow-up for nodules. Patient was counseled at length about follow-up with primary care doctor [employer] for diabetes. Patient was feeling better. She had no abdominal pain when distracted on day of discharge. Diet and exercise was discussed with patient. Patient had no leukocytosis and was afebrile. She was cleared for discharge by evaporative cooler installer. Patient was discharged home. On day of discharge, patient stated she was feeling better. Complained of abdominal pain that was nontender with distraction. No nausea or vomiting. Patient was tolerating diet well. Patient denied chest pain or palpitations. No shortness of breath. No fevers or chills. No dysuria. Patient was having bowel movements. Physical exam: General: Awake and alert, lying in bed in no acute distress. HEENT: Normocephalic, atraumatic, Extraocular muscles intact, pupils equal and reactive, no scleral icterus. Oropharynx is pink and moist. Neck is supple. Cardiovascular: Normal rhythm. Normal S1 and S2. No murmurs, rubs, or gallops appreciated. Pulmonary: Normal respiratory effort. No rhonchi, rales, or wheezing appreciated. Gastrointestinal: Soft. Nontender. Nondistended. Positive bowel sounds all 4 quadrants. No guarding. Obese abdomen. Musculoskeletal: Moves all extremities. No calf tenderness. No edema appreciated. Central nervous system: AAO x 3, CN 2-12 grossly intact. Dermatologic: Skin warm and dry. Please see chart for full details. Follow up instructions: Patient to follow-up with primary care doctor within 3-5 days. Patient to get referral for [employer] from her primary care doctor. Patient counseled on diet and exercise. Patient is taking insulin as prescribed. Patient has 3 month follow-up for lung nodules. All instructions explained to the patient in detail. Patient both understands and agrees to all instructions. Written instructions also given. Time spent in discharging the patient including chart review, medication reconciliation, discussion with the patient, medical coder, consultants, and nursing staff was approximately 40 minutes.
== END 2018-09-06 14:16 | disposition home or self-care (01) ==
LOC: ED 21:35 → ERH 23:20 → 5RSO 09-05 00:50
PROVIDERS: ADMIT Internal Medicine; ATTEND Internal Medicine
DX: I88.0 Nonspecific mesenteric lymphadenitis (principal); K44.9 Diaphragmatic hernia without obstruction or gangrene; K59.00 Constipation, unspecified; K76.0 Fatty (change of) liver, not elsewhere classified; K92.0 Hematemesis; K31.89 Other diseases of stomach and duodenum; K29.70 Gastritis, unspecified, without bleeding; F41.9 Anxiety disorder, unspecified; E11.65 Type 2 diabetes mellitus with hyperglycemia; J45.20 Mild intermittent asthma, uncomplicated; I10 Essential (primary) hypertension; Z79.4 Long term (current) use of insulin; F17.210 Nicotine dependence, cigarettes, uncomplicated; Z83.3 Family history of diabetes mellitus; Z91.19 Patient's noncompliance with other medical treatment and regimen; Z88.8 Allergy status to other drugs, medicaments and biological substances; Z87.892 Personal history of anaphylaxis; Z91.013 Allergy to seafood; R91.8 Other nonspecific abnormal finding of lung field; E66.01 Morbid (severe) obesity due to excess calories; Z68.42 Body mass index [BMI] 45.0-49.9, adult; R16.0 Hepatomegaly, not elsewhere classified
CPT/HCPCS: 36415; 80053; 80061; 82948; 83735; 84100; 85025; 96361; 96374; 96375; 96376; 99284; G0378; J1885; J2270; J2405; J7030

== ENCOUNTER 2018-09-18 01:16 | Emergency (ER) | payer MEDICAID ==
[2018-09-18 01:29] VITALS: BMI 45.1
[2018-09-18 01:34] VITALS: RESP 18; TEMP 98.1; O2SAT 99
--- NOTE | 2018-09-18 01:41 | ED PDOC ---
Arrival/HPI - General Chief Complaint: Lower Extremity Problem/Injury Time Seen by Provider: 09/18/18 01:17 Historian: Patient - History of Present Illness Narrative History of Present Illness (Text): 09/18/18 01:40 Tatiana Hardwick is a 33 year old female, whose past medical history includes Type 2 diabetes, asthma, and chronic back pain, who presents to the Emergency department complaining of bilateral lower extremity pain. Patient states she has been experiencing bilateral lower extremity pain with associated swelling and lower back pain for the past 3 days. Patient notes she was seen [place] [facility] [place] similar symptoms and was discharged home. Patient denies any fever, chills, chest pain, shortness of breath, nausea, vomiting, diarrhea, urinary symptoms, back pain, neck pain, headache, dizziness, or any other complaints. Symptom Onset: Gradual Symptom Course: Unchanged Activities at Onset: Light Context: Home Past Medical History - Provider Review Nursing Documentation Reviewed: Yes - Infectious Disease Hx of Infectious Diseases: None - Tetanus Immunization Tetanus Immunization: Unknown - Past Medical History Past Medical History: No Previous - Cardiac Hx Hypertension: Yes - Pulmonary Hx Asthma: Yes Hx Bronchitis: Yes - Neurological Hx Neurological Disorder: No - HEENT Hx HEENT Disorder: No - Renal Hx Renal Disorder: No - Endocrine/Metabolic Hx Endocrine Disorders: Yes Hx Diabetes Mellitus Type 2: Yes - Hematological/Oncological Hx Blood Disorders: No - Integumentary Hx Dermatological Disorder: No - Musculoskeletal/Rheumatological Hx Falls: No - Gastrointestinal Hx Gastrointestinal Disorders: No - Genitourinary/Gynecological Hx Genitourinary Disorders: No - Psychiatric Hx Psychophysiologic Disorder: Yes Hx Anxiety: Yes Hx Depression: Yes Hx Substance Use: No - Past Surgical History Past Surgical History: Non-Contributing - Surgical History Hx Tonsillectomy: Yes - Anesthesia Hx Anesthesia: Yes Hx Anesthesia Reactions: No - Suicidal Assessment Feels Threatened In Home Enviroment: No Family/Social History - Physician Review Nursing Documentation Reviewed: Yes Family/Social History: Unknown Family HX Smoking Status: Heavy Smoker > 10 Cigarettes Daily Hx Alcohol Use: No Hx Substance Use: No Hx Substance Use Treatment: No Allergies/Home Meds Allergies/Adverse Reactions: Allergies epinephrine Allergy (Verified 09/04/18 21:42) ANAPHYLAXIS shellfish derived Allergy (Verified 09/04/18 21:42) ANAPHYLAXIS Home Medications: Home Meds Medication Instructions Recorded Confirmed Albuterol 0.083% [Albuterol 0.083% 3 ml IH Q4 PRN 09/04/18 09/18/18 Inhal Lexis (2.5 mg/3 ml) UD] Albuterol HFA [Ventolin HFA 90 1 puff IH Q6 PRN 09/04/18 09/18/18 mcg/actuation (8 g)] Insulin Glargine,Hum.rec.anlog 40 unit SQ HS 09/18/18 09/18/18 [Felix Agustin U-100] Review of Systems - Physician Review All systems were reviewed & negative as marked: Yes - Review of Systems Constitutional: Normal. absent: Fevers Eyes: Normal ENT: Normal Respiratory: Normal. absent: SOB, Cough Cardiovascular: Normal. absent: Chest Pain Gastrointestinal: Normal. absent: Abdominal Pain, Diarrhea, Nausea, Vomiting Genitourinary Female: Normal. absent: Dysuria, Frequency, Hematuria, Urine Output Changes Musculoskeletal: Back Pain. absent: Neck Pain Skin: Normal. absent: Rash Neurological: Normal. absent: Headache, Dizziness Endocrine: Normal Hemo/Lymphatic: Normal Psychiatric: Normal Physical Exam Vital Signs Reviewed: Yes Vital Signs Temp Pulse Resp BP Pulse Ox 09/18/18 01:32 98.1 F 86 18 125/81 99 Temperature: Afebrile Blood Pressure: Normal Pulse: Regular Respiratory Rate: Normal Appearance: Positive for: Well-Appearing, Non-Toxic, Comfortable Pain Distress: None Mental Status: Positive for: Alert and Oriented X 3 - Systems Exam Head: Present: Atraumatic, Normocephalic Pupils: Present: PERRL Extroacular Muscles: Present: EOMI Conjunctiva: Present: Normal Mouth: Present: Moist Mucous Membranes Neck: Present: Normal Range of Motion Respiratory/Chest: Present: Clear to Auscultation, Good Air Exchange. No: Respiratory Distress, Accessory Muscle Use Cardiovascular: Present: Regular Rate and Rhythm, Normal S1, S2. No: Murmurs Abdomen: No: Tenderness, Distention, Peritoneal Signs Back: Present: Normal Inspection Upper Extremity: Present: Normal Inspection. No: Cyanosis, Edema Lower Extremity: Present: Swelling (Bilateral lower extremity swelling). No: Edema Neurological: Present: GCS=15, CN II-XII Intact, Speech Normal Skin: Present: Warm, Dry, Normal Color. No: Rashes Psychiatric: Present: Alert, Oriented x 3, Normal Insight, Normal Concentration Medical Decision Making ED Course and Treatment: 09/18/18 01:41 Impression: 33 year old female complaining of bilateral lower extremity pain/swelling and lower back pain. Plan: -- CT Lumbar Spine w/o contrast -- US Duplex Lower Extremities -- EKG -- Labs, alcohol level, troponin -- Urinalysis, urine drug screen -- Reassess and disposition Prior Visits: Notes and results from previous visits were reviewed. Progress Notes: US Duplex Lower Extremities preliminary read negative for DVT. pt ambulating well in e will dc to follow up with pain management - Scribe Statement The provider has reviewed the documentation as recorded by the Andrew Agosto Provider Scribe Attestation: All medical record entries made by the Scribe were at my direction and personally dictated by me. I have reviewed the chart and agree that the record accurately reflects my personal performance of the history, physical exam, medical decision making, and the department course for this patient. I have also personally directed, reviewed, and agree with the discharge instructions and disposition. Disposition/Present on Arrival - Present on Arrival Any Indicators Present on Arrival: No History of DVT/PE: No History of Uncontrolled Diabetes: No Urinary Catheter: No History of Decub. Ulcer: No History Surgical Site Infection Following: None - Disposition Have Diagnosis and Disposition been Completed?: Yes Diagnosis: Back pain, Chronic back pain, Diabetes Disposition: HOME/ ROUTINE Disposition Time: 06:30 Condition: STABLE Discharge Instructions (ExitCare): Low Back Pain in Adults, Chronic Pain, Radiculopathy Additional Instructions: continue your medications follow up with pain management Referrals: Ryan Mejia MD [Primary Care Provider] - Follow up with primary Ilan Purdy MD [Staff Provider] - Follow up with primary Forms: [employer] (Nepali)
[2018-09-18 02:31] LABS: BASO # 0.03 K/mm3 (0.0-2.0); BASO % 0.4 % (0.0-3.0); EOS # 0.3 (0.0-0.7); EOS % 3.5 % (1.5-5.0); HEMOGLOBIN 14.4 g/dL (12.0-16.0); LYMPH % 26.3 % (22.0-35.0); MEAN CELL VOLUME 86.3 fl (80.0-105.0); MEAN CORPUSCULAR HEMOGLOBIN 28.5 pg (25.0-35.0); MEAN PLATELET VOLUME 10.4 fl (7.0-11.0); MONO # 0.5 (0.1-0.6); MONO % 6.2 % (1.0-6.0); RBC 5.05 10^6/uL (3.5-6.1); WHITE BLOOD COUNT 7.5 10^3/uL (4.5-11.0)
[2018-09-18 02:43] LABS: TROPONIN I < 0.01 ng/mL
[2018-09-18 02:52] LABS: ALB/GLOB RATIO 0.9 (1.1-1.8); ALBUMIN 3.2 g/dL (3.0-4.8); ALT/SGPT 31 U/L (7-56); AST/SGOT 36 U/L (14-36); BLOOD UREA NITROGEN 15 mg/dL (7-21); CALCIUM 8.5 mg/dL (8.4-10.5); GFR NON-AFRICAN AMERICAN > 60
[2018-09-18 02:57] LABS: PH,URINE 6.5 (4.7-8.0); URINE BILIRUBIN NEGATIVE (NEGATIVE); URINE BLOOD NEGATIVE (NEGATIVE); URINE GLUCOSE (UA) 250 mg/dL (NEGATIVE); URINE LEUKOCYTE ESTERASE SMALL Leu/uL (NEGATIVE); URINE PROTEIN NEGATIVE mg/dL (<30 mg/dL); URINE UROBILINOGEN 0.2 E.U./dL (<1 E.U./dL)
[2018-09-18 03:07] LABS: URINE COLOR YELLOW (YELLOW)
[2018-09-18 03:23] LABS: BARBITURATES, UR NEGATIVE (NEGATIVE); BENZODIAZEPINES, UR NEGATIVE (NEGATIVE); OPIATES, UR POSITIVE (NEGATIVE); PHENCYCLIDINE, UR NEGATIVE (NEGATIVE)
[2018-09-18 03:56] LABS: URINE APPEARANCE SL CLOUDY (CLEAR)
[2018-09-18 03:57] LABS: URINE BACTERIA MOD /hpf; URINE RBC 0 - 2 /hpf (0-2)
[2018-09-18 07:09] VITALS: BP 132/78; PULSE 79
--- NOTE | 2018-09-18 09:29 | US ---
HISTORY: Leg pain and swelling. Evaluate for DVT PHYSICIAN(S): Kleber Lee MD. TECHNIQUE: Duplex sonography and color-flow Doppler with graded compression were used to evaluate the deep venous systems of both lower extremities. The exam is limited by body habitus and edema FINDINGS: The visualized deep venous systems of both lower extremities are sonographically normal and compressible. Normal wave forms and augmentation are seen. There is no sonographic evidence for deep venous thrombosis in the visualized segments of both lower extremities. IMPRESSION: No sonographic evidence for deep venous thrombosis in the visualized segments of both lower extremities.
--- NOTE | 2018-09-18 10:24 | CT ---
Date of service: 09/18/2018 PROCEDURE: CT Lumbar Spine without contrast HISTORY: back pain COMPARISON: None available. TECHNIQUE: Axial computed tomography images were obtained of the lumbar spine without the use of intravenous contrast. Coronal and sagittal reformatted images were created and reviewed. Radiation dose: Total exam DLP = 2017.6 mGy-cm. This CT exam was performed using one or more of the following dose reduction techniques: Automated exposure control, adjustment of the mA and/or kV according to patient size, and/or use of iterative reconstruction technique. FINDINGS: VERTEBRAE: Unremarkable. No fracture. Normal alignment. There is a mild chronic appearing compression deformity of T12 with a Schmorl's node in the superior endplate. DISCS/SPINAL CANAL/NEURAL FORAMINA: L1-2: Unremarkable. L2-3: Unremarkable. L3-4: Unremarkable. L4-5: Unremarkable. L5-S1: Mild disc bulge at L5-S1. PARASPINAL SOFT TISSUES: Unremarkable. OTHER FINDINGS: The report concurs with the preliminary [facility] report IMPRESSION: No acute findings
== END 2018-09-18 06:45 | disposition home or self-care (01) ==
LOC: ED 01:16
DX: M54.5 Low back pain (principal); G89.29 Other chronic pain; E11.9 Type 2 diabetes mellitus without complications; I10 Essential (primary) hypertension; F17.210 Nicotine dependence, cigarettes, uncomplicated